=== PATIENT | female | born 1970 | race Caucasian/White ===

== ENCOUNTER 2017-09-09 09:43 | Emergency (ER) | payer MEDICAID, OTHER ==
[2017-09-09] MEDS ORDERED: Ondansetron 4 MG/2 ML SDV IVPUSH ONE (10:00)
[2017-09-09] MEDS ORDERED: Sodium Chloride 0.9% 1,000 ML IV SCH ×2 (10:00→11:15)
[2017-09-09] MEDS ORDERED: Pantoprazole 40 MG Vial IVPUSH ONE (10:00)
--- NOTE | 2017-09-09 10:03 | EDM.PDOC ---
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 The first episode occurred just before [place] and lasted about 15 hours. There was no fever, chills, sweats, diarrhea or back ache. She reports no antecedent exposure. Sxs appeared to improve to her baseline, then relapsed this weekend for about 12 hours returning to baseline, and again this early am. She did eat chips and salsa last night which composed most of the emesis this am. She tried some antiemetic med from a prior hospitalization without benefit. Her LMP August 25. - Related Data Allergies Allergy/AdvReac Type Severity Reaction Status Date / Time No Known Allergies Allergy Verified 09/09/17 10:00 Home Meds: Home Meds Pantoprazole Sodium [Protonix] 40 mg PO BID #14 tablet. 09/09/17 [Rx] Past Medical History - Past Surgical History Musculoskeletal Surgical History: Reports: Arthroscopic Knee, Shoulder Surgery ED ROS GENERAL - Review of Systems Review Of Systems: See Below Constitutional: Reports: Malaise, Weakness, Decreased Appetite HEENT: Reports: No Symptoms Respiratory: Reports: No Symptoms Cardiovascular: Reports: No Symptoms Endocrine: Reports: No Symptoms GI/Abdominal: Reports: Abdominal Pain (epigastric), Anorexia, Decreased Appetite , Nausea, Vomiting : Reports: No Symptoms Musculoskeletal: Reports: No Symptoms Skin: Reports: No Symptoms Neurological: Reports: Headache Psychiatric: Reports: No Symptoms Hematologic/Lymphatic: Reports: No Symptoms Immunologic: Reports: No Symptoms ED EXAM, GI/ABD - Physical Exam Exam: See Below Exam Limited By: Physical Impairment General Appearance: Alert, WD/WN, Anxious, Moderate Distress Eyes: Bilateral: Normal Appearance, EOMI Ears: Normal External Exam Nose: Normal Inspection Throat/Mouth: Normal Lips, Normal Teeth, Normal Gums, Normal Voice, No Airway Compromise, Other (membranes dry) Head: Atraumatic, Normocephalic Neck: Normal Inspection, Supple, Non-Tender, Full Range of Motion Respiratory/Chest: Lungs Clear, Normal Breath Sounds Cardiovascular: Regular Rate, Rhythm, No Murmur GI/Abdominal Exam: Normal Bowel Sounds, No Organomegaly, No Mass, Distended ( mild), Tender (epigastrium) (Female) Exam: Deferred Rectal (Female) Exam: Deferred Back Exam: Normal Inspection Extremities: Normal Inspection, Normal Range of Motion Neurological: Alert, Oriented, CN II-XII Intact, Normal Gait, No Motor/Sensory Deficits Psychiatric: Normal Affect, Anxious Skin Exam: Warm, Dry Lymphatic: No Adenopathy Course - Vital Signs Text/Narrative:: Following assessment at the [facility], an IV was started in the LUE, and I administered NS 2L and 1L NS with 20 KCL IV, Zofran 8 mg IV, and Protonix 80 mg IV infusion. A GI Cocktail was also administered for relief of sxs, and patient was sxs improved at time of discharge. - Orders/Labs/Meds Orders: Active Orders 24 hr Category Date Time Status NS + KCl 20mEq/L [Normal Saline with 20 mEq KCl] 1,000 Med 09/09/17 11:15 Active ml IV ASDIRECTED Sodium Chloride 0.9% [Normal Saline] 1,000 ml Med 09/09/17 10:00 Active IV ASDIRECTED Sodium Chloride 0.9% [Normal Saline] 1,000 ml Med 09/09/17 11:15 Active IV ASDIRECTED Medication Orders Sodium Chloride (Normal Saline) 1,000 mls @ 999 mls/hr IV ASDIRECTED ELIZABETH Last Admin: 09/09/17 10:01 Dose: 999 mls/hr Sodium Chloride (Normal Saline) 1,000 mls @ 999 mls/hr IV ASDIRECTED ELIZABETH Last Admin: 09/09/17 12:30 Dose: 999 mls/hr Potassium Chloride/Sodium Chloride (Normal Saline With 20 Meq Kcl) 1,000 mls @ 999 mls/hr IV ASDIRECTED ELIZABETH Last Admin: 09/09/17 11:10 Dose: 999 mls/hr Labs: Laboratory Tests 09/09/17 09/09/17 09/09/17 Range/Units 10:15 10:15 11:21 WBC 7.5 (4.5-12.0) X10-3/uL RBC 4.31 (3.23-5.20) x10(6)uL Hgb 13.2 (11.5-15.5) g/dL Hct 38.5 (30.0-51.3) % MCV 89.2 (80-96) fL MCH 30.6 (27.7-33.6) pg MCHC 34.3 (32.2-35.4) g/dL RDW 11.9 (11.5-15.5) % Plt Count 160 (125-369) X10(3)uL MPV 8.4 (7.4-10.4) fL Add Manual Diff Yes Neutrophils % (Manual) 86 H (46-82) % Lymphocytes % (Manual) 9 L (13-37) % Monocytes % (Manual) 5 (4-12) % Sodium 139 (135-145) mmol/L Potassium 3.1 L (3.5-5.3) mmol/L Chloride 103 (100-110) mmol/L Carbon Dioxide 24 (21-32) mmol/L BUN 15 (7-18) mg/dL Creatinine 1.0 (0.55-1.02) mg/dL Est Cr Clr Drug Dosing TNP Estimated GFR (MDRD) 60 (>60) BUN/Creatinine Ratio 15.0 (9-20) Glucose 168 H (80-116) mg/dL POC Glucose (80-116) mg/dL Calcium 8.5 L (8.6-10.2) mg/dL Total Bilirubin 0.6 (0.1-1.3) mg/dL AST 16 (5-25) IU/L ALT 31 (12-36) U/L Alkaline Phosphatase 47 L (56-112) IU/L Total Protein 6.9 (6.0-8.0) g/dL Albumin 3.3 L (3.5-5.2) g/dL Globulin 3.6 g/dL Albumin/Globulin Ratio 0.9 Urine Color Yellow (YELLOW) Urine Appearance Slightly cloudy (CLEAR) Urine pH 7.0 H (5.0-6.5) Ur Specific [place] 1.015 (1.010-1.025) Urine Protein Negative (NEGATIVE) mg/dL Urine Glucose (UA) 50 H (NEGATIVE) mg/dL Urine Ketones 50 H (NEGATIVE) mg/dL Urine Occult Blood Negative (NEGATIVE) Urine Nitrite Negative (NEGATIVE) Urine Bilirubin Negative (NEGATIVE) Urine Urobilinogen Normal (NEGATIVE) mg/dL Ur Leukocyte Esterase Negative (NEGATIVE) Urine WBC 0-5 (0) Ur Squamous Epith Cells Few H (NS,R,O) Urine Bacteria Few H (NS) 09/09/17 Range/Units 14:05 WBC (4.5-12.0) X10-3/uL RBC (3.23-5.20) x10(6)uL Hgb (11.5-15.5) g/dL Hct (30.0-51.3) % MCV (80-96) fL MCH (27.7-33.6) pg MCHC (32.2-35.4) g/dL RDW (11.5-15.5) % Plt Count (125-369) X10(3)uL MPV (7.4-10.4) fL Add Manual Diff Neutrophils % (Manual) (46-82) % Lymphocytes % (Manual) (13-37) % Monocytes % (Manual) (4-12) % Sodium (135-145) mmol/L Potassium (3.5-5.3) mmol/L Chloride (100-110) mmol/L Carbon Dioxide (21-32) mmol/L BUN (7-18) mg/dL Creatinine (0.55-1.02) mg/dL Est Cr Clr Drug Dosing Estimated GFR (MDRD) (>60) BUN/Creatinine Ratio (9-20) Glucose (80-116) mg/dL POC Glucose 123 H (80-116) mg/dL Calcium (8.6-10.2) mg/dL Total Bilirubin (0.1-1.3) mg/dL AST (5-25) IU/L ALT (12-36) U/L Alkaline Phosphatase (56-112) IU/L Total Protein (6.0-8.0) g/dL Albumin (3.5-5.2) g/dL Globulin g/dL Albumin/Globulin Ratio Urine Color (YELLOW) Urine Appearance (CLEAR) Urine pH (5.0-6.5) Ur Specific [place] (1.010-1.025) Urine Protein (NEGATIVE) mg/dL Urine Glucose (UA) (NEGATIVE) mg/dL Urine Ketones (NEGATIVE) mg/dL Urine Occult Blood (NEGATIVE) Urine Nitrite (NEGATIVE) Urine Bilirubin (NEGATIVE) Urine Urobilinogen (NEGATIVE) mg/dL Ur Leukocyte Esterase (NEGATIVE) Urine WBC (0) Ur Squamous Epith Cells (NS,R,O) Urine Bacteria (NS) Meds: Medications Generic Name Dose Route Start Last Admin Trade Name Freq PRN Reason Stop Dose Admin Sodium Chloride 1,000 mls @ 999 mls/hr 09/09/17 10:00 09/09/17 10:01 Normal Saline IV 999 mls/hr ASDIRECTED ELIZABETH Administration Sodium Chloride 1,000 mls @ 999 mls/hr 09/09/17 11:15 09/09/17 12:30 Normal Saline IV 999 mls/hr ASDIRECTED ELIZABETH Administration Potassium Chloride/Sodium Chloride 1,000 mls @ 999 mls/hr 09/09/17 11:15 04/19 11:10 Normal Saline With 20 Meq Kcl IV 999 mls/hr ASDIRECTED ELIZABETH Administration Discontinued Medications Generic Name Dose Route Start Last Admin Trade Name Freq PRN Reason Stop Dose Admin Al Hydroxide/Mg Hydroxide 15 0 ml 09/09/17 12:54 09/09/17 13:48 ml/ Lidocaine HCl 15 ml PO 09/09/17 12:55 15 ml ONETIME ONE Administration Ondansetron HCl 8 mg 09/09/17 10:00 09/09/17 10:41 Zofran IVPUSH 09/09/17 10:01 8 mg ONETIME ONE Administration Pantoprazole Sodium 80 mg 09/09/17 10:00 09/09/17 10:13 Protonix Iv IVPUSH 09/09/17 10:01 80 mg .BOLUS ONE Administration Departure - Departure Time of Disposition: 14:15 Disposition: Home, Self-Care 01 Condition: Fair Clinical Impression: Acute gastritis Qualifiers: Gastritis type: unspecified gastritis Gastritis bleeding: without bleeding Qualified Code(s): K29.00 - Acute gastritis without bleeding - Discharge Information Referrals: Marlena Bowie NP [Primary Care Provider] - Forms: ED Department Discharge - Problem List & Annotations (1) Acute gastritis SNOMED Code(s): 33556533 Code(s): K29.00 - ACUTE GASTRITIS WITHOUT BLEEDING Status: Acute Current Visit: Yes Annotation/Comment:: Acute gastritis NOS. I dispensed Protonix 40 mg bid, hydration, and rest. Follow up with PCP this week. Qualifiers: Gastritis type: unspecified gastritis Gastritis bleeding: without bleeding Qualified Code(s): K29.00 - Acute gastritis without bleeding - Problem List Review Problem List Initiated/Reviewed/Updated: Yes - My Orders Last 24 Hours: My Active Orders 09/09/17 10:00 Sodium Chloride 0.9% [Normal Saline] 1,000 ml IV ASDIRECTED 09/09/17 11:15 NS + KCl 20mEq/L [Normal Saline with 20 mEq KCl] 1,000 ml IV ASDIRECTED Sodium Chloride 0.9% [Normal Saline] 1,000 ml IV ASDIRECTED - Assessment/Plan Last 24 Hours: My Active Orders 09/09/17 10:00 Sodium Chloride 0.9% [Normal Saline] 1,000 ml IV ASDIRECTED 09/09/17 11:15 NS + KCl 20mEq/L [Normal Saline with 20 mEq KCl] 1,000 ml IV ASDIRECTED Sodium Chloride 0.9% [Normal Saline] 1,000 ml IV ASDIRECTED Plan: Follow up with PCP this week.
[2017-09-09] MEDS ORDERED: NS + KCl 20mEq/L 1,000 ML IV SCH (11:15)
--- NOTE | 2017-09-09 11:57 | CR ---
INDICATION: Recurrent nausea and vomiting over 9 days. ABDOMEN: Four images of the abdomen in supine and upright projections revealed no evidence of free air or obstruction, with a nonspecific pattern of gas and feces. 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 Phleboliths are noted in the pelvis. No organomegaly or mass lesions were identified. No nonvascular pathologic calcifications were suggested. IMPRESSION: Nonacute abdomen. Report was given in person to Dr. Santoro at 1110 hours, 09/09/2017. MTDD
[2017-09-09] MEDS ORDERED: Alum Hydroxide/Mag Hydroxide 15 ML, Lidocaine 2% 15 ML PO ONE ×2 (12:54)
== END 2017-09-09 14:30 | disposition home or self-care (01) ==
LOC: FB.ED 09:43
DX: K29.00 Acute gastritis without bleeding (principal)
CPT/HCPCS: 36415; 74019; 80053; 81001; 82962; 85025; 96361; 96374; 96375; 99284; A9270; C9113; J2405; J3480; J7040; 96365

== ENCOUNTER 2017-10-19 10:48 | Emergency (ER) | payer BC, OTHER ==
[2017-10-19] MEDS ORDERED: Sodium Chloride 0.9% 1,000 ML IV ONE (11:46)
[2017-10-19] MEDS ORDERED: Pantoprazole 40 MG Vial IVPUSH ONE (11:47)
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
== END 2017-10-19 13:13 ==
LOC: FB.ED 10:48
DX: S70.01XA Contusion of right hip, initial encounter (principal); S20.211A Contusion of right front wall of thorax, initial encounter; S80.02XA Contusion of left knee, initial encounter; S80.01XA Contusion of right knee, initial encounter; S70.12XA Contusion of left thigh, initial encounter; V89.2XXA Person injured in unspecified motor-vehicle accident, traffic, initial encounter; Z79.899 Other long term (current) drug therapy
CPT/HCPCS: 80053; 82150; 99283; C9113; J7040